=== PATIENT | male | born 1990 | race Caucasian/White ===

== ENCOUNTER → 2019-09-25 11:05 | Outpatient (CLI) | payer SELFPAY ==
[2019-09-25 11:59] LABS: Liquefaction Semen YES (YES); PH Semen 8 (7-8)
[2019-09-25 12:00] LABS: Sperm Motility 50% % Motile
[2019-09-25 12:03] LABS: Sperm Count 10 x10^6/mL (20-150)
[2019-09-25 12:13] LABS: Sperm Morphology 70 %ABNORM (0-30)
== END ==
PROVIDERS: Referring Provider Student in an Organized Health Care Education/Training Program; Visit Provider Student in an Organized Health Care Education/Training Program
DX: N46.9 Male infertility, unspecified (principal)
CPT/HCPCS: 89320